=== PATIENT | male | born 1995 | race Caucasian/White ===

== ENCOUNTER 2020-08-24 20:26 | Emergency (ER) | payer OTHER ==
[2020-08-24 20:31] VITALS: TEMP 98.3
--- NOTE | 2020-08-24 20:36 | ED ---
General Adult HPI - General Chief complaint: Extremity Injury, Upper Stated complaint: Left shoulder pain Time Seen by Provider: 08/24/20 20:33 Source: patient Mode of arrival: ambulatory Limitations: no limitations - History of Present Illness Initial comments: 24-year-old male presenting to the emergency prompt chief complaint of a fall and left shoulder pain. Patient reports this occurred about one hour prior to arrival. Patient states he was ice skating when he lost his balance and fell on the left side of his body and he also hit his head in the left temporal region. Denies any loss of consciousness or blood thinners. He states after she got up, he moves his left shoulder and he felt some "cracking and popping". Patient states now he has limited range of motion with abduction. He denies taking medication to alleviate his symptoms. - Related Data Home Medications Medication Instructions Recorded Confirmed No Known Home Medications 08/24/20 08/24/20 Allergies Allergy/AdvReac Type Severity Reaction Status Date / Time No Known Allergies Allergy Verified 08/24/20 21:19 Review of Systems ROS Statement: Those systems with pertinent positive or pertinent negative responses have been documented in the HPI. ROS Other: All systems not noted in ROS Statement are negative. Past Medical History Past Medical History: No Reported History History of Any Multi-Drug Resistant Organisms: None Reported Past Surgical History: Orthopedic Surgery Past Psychological History: No Psychological Hx Reported Smoking Status: Vaper Past Alcohol Use History: None Reported Past Drug Use History: None Reported General Exam Limitations: no limitations General appearance: alert, in no apparent distress Head exam: Present: atraumatic, normocephalic, normal inspection. Absent: other (Negative Galeana sign, raccoon eyes, hemotympanum.) Eye exam: Present: normal appearance, PERRL, EOMI Pupils: Present: normal accommodation ENT exam: Present: normal exam, normal oropharynx, mucous membranes moist, TM's normal bilaterally, normal external ear exam Neck exam: Present: normal inspection, full ROM. Absent: tenderness Respiratory exam: Present: normal lung sounds bilaterally. Absent: respiratory distress, wheezes Cardiovascular Exam: Present: regular rate, normal rhythm, normal heart sounds. Absent: systolic murmur, diastolic murmur Extremities exam: Present: normal inspection, tenderness (Localized tenderness along the anterior lateral aspect of the left shoulder. No palpable bony abnormalities along the clavicle.), normal capillary refill, other (+2 ulnar and radial pulses bilaterally.). Absent: full ROM (Limited range of motion with abduction above 45 in the left shoulder.), pedal edema, joint swelling, calf tenderness Back exam: Present: normal inspection, full ROM. Absent: tenderness, CVA tenderness (R), CVA tenderness (L), muscle spasm, paraspinal tenderness, vertebral tenderness Neurological exam: Present: alert, oriented X3 Psychiatric exam: Present: normal affect, normal mood Skin exam: Present: warm, dry, intact, normal color Course Vital Signs 08/24/20 08/24/20 20:28 22:15 Temperature 98.3 F 98.3 F Pulse Rate 76 86 Respiratory 18 16 Rate Blood Pressure 144/67 152/56 O2 Sat by Pulse 100 Oximetry Medical Decision Making - Medical Decision Making 24-year-old male presenting to emergency Department with a chief complaint of left shoulder pain. On physical examination, patient has limited range of motion with abduction above 45. Also localized tenderness along the anterolateral aspect of the left deltoid. No bony abnormalities along the left clavicle. Patient also had a head injury in the left temporal region. CT brain and C-spine without contrast reveals no acute processes. X-ray of the left shoulder is unremarkable. I do suspect the potential injury to the rotator cuff. Patient was advised to follow-up with avionics systems integration specialist. Patient advised to alternate between Tylenol and Motrin for pain control. He is otherwise neurovascularly intact. Strict return parameters were thoroughly discussed with patient who is understanding and agreeable. Case is discussed with physician. Disposition Clinical Impression: Shoulder pain, left, Head injury, Injury of left shoulder Disposition: HOME SELF-CARE Condition: Stable Instructions (If sedation given, give patient instructions): Rotator Cuff Injury (ED) Additional Instructions: Follow with orthopedic doctor. Alternate between Tylenol or Motrin for pain control. Return to emergency department if symptoms worsen. Is patient prescribed a controlled substance at d/c from ED?: No Referrals: Edmund Carlin MD [Primary Care Provider] - 1-2 days Silvano Nelson DO [Doctor of Osteopathic Medicine] - 1-2 days Time of Disposition: 21:48
--- NOTE | 2020-08-24 21:10 | XR ---
EXAM: XR Left Shoulder Complete, 2 or More Views CLINICAL HISTORY: ITS.REASON XR Reason: fall TECHNIQUE: Two or more views of the left shoulder. COMPARISON: None FINDINGS: Bones/joints: No displaced fracture or dislocation identified. Joint space is maintained. Probable small bone islands in the left humeral head. Soft tissues: Normal. IMPRESSION: No displaced fracture or dislocation identified.
--- NOTE | 2020-08-24 21:30 | CT ---
EXAM: CT Head Without Intravenous Contrast CLINICAL HISTORY: ITS.REASON CT Reason: head injury TECHNIQUE: Axial computed tomography images of the head/brain without intravenous contrast. CTDI is 45.2 mGy and DLP is 1083 mGy-cm. This CT exam was performed using one or more of the following dose reduction techniques: automated exposure control, adjustment of the mA and/or kV according to patient size, and/or use of iterative reconstruction technique. COMPARISON: None FINDINGS: Brain: No acute infarct or hemorrhage. No extra-axial fluid collection. No mass effect or midline shift. Ventricles and sulci: Normal. No ventriculomegaly or intraventricular hemorrhage. Bones: Normal. No bony lesion or acute fracture. Subcutaneous tissues: Normal. Sinuses: Polyps versus mucous retention cysts in the maxillary sinuses. Mastoid air cells: Normal. Orbits: Grossly unremarkable. IMPRESSION: No acute intracranial abnormality. EXAM: CT Cervical Spine Without Intravenous Contrast CLINICAL HISTORY: ITS.REASON CT Reason: head injury TECHNIQUE: Axial computed tomography images of the cervical spine without intravenous contrast. CTDI is 15.7 mGy and DLP is 443.4 mGy-cm. This CT exam was performed using one or more of the following dose reduction techniques: automated exposure control, adjustment of the mA and/or kV according to patient size, and/or use of iterative reconstruction technique. COMPARISON: None FINDINGS: Vertebrae: Unremarkable. No acute fracture. Discs/spinal canal/neural foramina: No acute findings. No spinal canal stenosis. Soft tissues: Unremarkable. Other: Paranasal sinus disease. Please see accompanying CT head. Scattered lymph nodes are likely reactive. Dental disease involving bilateral third mandibular molars. IMPRESSION: Normal cervical spine CT.
[2020-08-24 22:17] VITALS: BP 152/56; PULSE 86; RESP 16
== END 2020-08-24 22:16 | disposition home or self-care (01) ==
LOC: EC 20:26
DX: S09.90XA Unspecified injury of head, initial encounter (principal); S49.92XA Unspecified injury of left shoulder and upper arm, initial encounter; F17.290 Nicotine dependence, other tobacco product, uncomplicated; W00.0XXA Fall on same level due to ice and snow, initial encounter; Y93.21 Activity, ice skating
CPT/HCPCS: 70450; 72125; 99284